=== PATIENT | female | born 1990 | race Caucasian/White ===

== ENCOUNTER → 2017-01-09 | Outpatient (CLI) | payer BC ==
[~2017-01-09] VITALS: Ht 157.5 cm; Wt 59.0 kg
[~2017-01-09] MED LIST: ANTIBIOTIC PO; BACTRIM,SEPT1 TABLET PO; MULTIVITAMIN1 EAC2 PO; SPRINTEC1 EACH PO; ZOFRAN ODT4 MG PO
[2017-01-09 16:59] VITALS: BP 123/66
== END | disposition home or self-care (01) ==
LOC: IVINF 16:48
DX: O36.0990 Maternal care for other rhesus isoimmunization, unspecified trimester, not applicable or unspecified (principal); Z3A.00 Weeks of gestation of pregnancy not specified
CPT/HCPCS: 96372; J2790

== ENCOUNTER 2017-01-12 02:54 | Emergency (ER) | payer BC ==
[~2017-01-12] VITALS: Ht 157.5 cm; Wt 55.7 kg
[~2017-01-12 02:54] MED LIST changes: -ZOFRAN ODT4 MG PO
[2017-01-12 03:40] LABS: HEMATOCRIT 42.4 % (36.0-46.0); MCH 33.5 PG (29.0-34.0); MCHC 34.7 G/DL (30.0-36.0); MCV 96.6 FL (83-99); MEAN PLAT.VOLUME 9.7 uM^3 (9.5-12.4); PLATELET COUNT 232 K/uL (156-360); RBC DIS.WIDTH-CV 11.2 % (11.8-14.6); RED BLOOD COUNT 4.39 M/uL (3.80-5.20); WHITE BLOOD COUNT 5.3 K/uL (4.1-10.2)
[2017-01-12 03:49] LABS: CHLORIDE 102 mEq/L (99-109); SODIUM 135 mEq/L (136-147)
[2017-01-12 03:51] LABS: GLUCOSE 96 mg/dL (70-99)
[2017-01-12 03:52] LABS: ANION GAP 12 MEQ/L (2-14)
[2017-01-12 03:53] LABS: TOTAL BILIRUBIN 0.5 mg/dL (0.0-1.0)
[2017-01-12 03:54] LABS: ALKALINE PHOSPHATASE 49 IU/L (3-129)
[2017-01-12 03:55] LABS: GFR ESTIMATE (CALCULATED) > 59 mL/min/
[2017-01-12 03:56] LABS: UREA NITROGEN (BUN) 14 mg/dL (9-23)
[2017-01-12 03:58] LABS: LIPASE 30 U/L (1.0-51.0)
[2017-01-12 04:13] LABS: INFLUENZA A VIRAL ANTIGEN NEGATIVE; INFLUENZA B VIRAL ANTIGEN NEGATIVE
[2017-01-12 04:30] LABS: QUANTITATIVE HCG 24801.2 MIU/ML
[2017-01-12 04:35] LABS: ADD MIUA? YES; BILIRUBIN NEGATIVE; BLOOD NEGATIVE; GLUCOSE (STRIP) NEGATIVE; KETONES 5; LEUKOCYTES TRACE; NITRITE NEGATIVE; PROTEIN (STRIP) NEGATIVE; SPECIFIC GRAVITY 1.023 (1.000-1.030); UROBILINOGEN 0.2 MG/DL (0.2-1.0)
[2017-01-12 04:50] LABS: COLOR YELLOW ((YELLOW))
[2017-01-12 05:02] LABS: BACTERIA NONE SEEN /HPF; EPITHELIAL CELLS 2+ /HPF; HYALINE CASTS 0-5 /LPF; MUCUS 2+ /LPF; RED BLOOD CELLS 0-5 /HPF (0-5); UCUL ADDED? NO; WHITE BLOOD CELLS 0-5 /HPF (0-5)
[2017-01-12] MEDS ORDERED: ZOFRAN ODT4 MG PO (05:12)
[2017-01-12 06:18] VITALS: BP 116/73
== END 2017-01-12 06:20 | disposition home or self-care (01) ==
LOC: EME 02:54
PROVIDERS: Emergency Medicine
DX: O21.9 Vomiting of pregnancy, unspecified (principal); O99.89 Other specified diseases and conditions complicating pregnancy, childbirth and the puerperium; R55 Syncope and collapse; R10.9 Unspecified abdominal pain; R19.7 Diarrhea, unspecified; O99.281 Endocrine, nutritional and metabolic diseases complicating pregnancy, first trimester; E86.0 Dehydration; O23.41 Unspecified infection of urinary tract in pregnancy, first trimester; Z3A.01 Less than 8 weeks gestation of pregnancy
CPT/HCPCS: 80053; 81003; 83690; 84702; 85027; 87502; 99281; 99285; J2405; J7030

== ENCOUNTER → 2017-06-16 | Outpatient (CLI) | payer OTHER ==
[~2017-06-16] VITALS: Ht 154.9 cm; Wt 59.0 kg
[~2017-06-16] MED LIST changes: +ZOFRAN ODT4 MG PO
[2017-06-16 11:05] VITALS: BP 124/60
== END | disposition home or self-care (01) ==
LOC: IVINF 10:51
DX: Z31.82 Encounter for Rh incompatibility status (principal); Z3A.28 28 weeks gestation of pregnancy
CPT/HCPCS: 96372; J2790

== ENCOUNTER 2017-09-11 08:10 | Inpatient (IN) | payer OTHER ==
[~2017-09-11] VITALS: Ht 157.5 cm; Wt 73.0 kg
[2017-09-11] VITALS (28 sets, daily range): BP systolic 93–136; BP diastolic 52–81
[2017-09-11 09:23] LABS: EOSINOPHIL (%) 1.9 % (0-5); EOSINOPHIL COUNT 0.2 K/uL (0-0.3); HEMATOCRIT 39.3 % (36.0-46.0); IMMATURE GRANULOCYTE (%) 0.7 % (0.0-0.7); IMMATURE GRANULOCYTE COUNT 0.1 K/uL; INSTRUMENT ABS NEUTROPHIL CT 6.2 K/uL; LYMPHOCYTE COUNT 1.5 K/uL (1.0-2.8); MCH 35.4 PG (29.0-34.0); MCHC 35.1 G/DL (30.0-36.0); MCV 100.8 FL (83-99); MEAN PLAT.VOLUME 10.4 uM^3 (9.5-12.4); MONOCYTE (%) 8.9 % (3-12); MONOCYTE COUNT 0.8 K/uL (0-0.8); NEUTROPHIL (%) 71.3 % (45-76); NEUTROPHIL COUNT 6.2 K/uL (1.8-6.4); PLATELET COUNT 162 K/uL (156-360); RBC DIS.WIDTH-CV 12.3 % (11.8-14.6); RBC DIS.WIDTH-SD 45.5 % (39-53); WHITE BLOOD COUNT 8.8 K/uL (4.1-10.2)
[2017-09-12] VITALS (13 sets, daily range): BP systolic 97–142; BP diastolic 53–73
[2017-09-13 05:46] LABS: EOSINOPHIL (%) 2.3 % (0-5); EOSINOPHIL COUNT 0.3 K/uL (0-0.3); HEMATOCRIT 33.4 % (36.0-46.0); IMMATURE GRANULOCYTE (%) 0.8 % (0.0-0.7); IMMATURE GRANULOCYTE COUNT 0.1 K/uL; INSTRUMENT ABS NEUTROPHIL CT 7.8 K/uL; LYMPHOCYTE COUNT 1.7 K/uL (1.0-2.8); MCH 35.2 PG (29.0-34.0); MCHC 34.1 G/DL (30.0-36.0); MCV 103.1 FL (83-99); MEAN PLAT.VOLUME 10.5 uM^3 (9.5-12.4); MONOCYTE (%) 8.3 % (3-12); MONOCYTE COUNT 0.9 K/uL (0-0.8); NEUTROPHIL (%) 72.6 % (45-76); NEUTROPHIL COUNT 7.8 K/uL (1.8-6.4); PLATELET COUNT 136 K/uL (156-360); RBC DIS.WIDTH-CV 12.3 % (11.8-14.6); RBC DIS.WIDTH-SD 46.4 % (39-53); RED BLOOD COUNT 3.24 M/uL (3.80-5.20); WHITE BLOOD COUNT 10.8 K/uL (4.1-10.2)
[2017-09-13 07:10] VITALS: BP 97/56
[2017-09-13 15:05] VITALS: BP 108/53
[2017-09-13 17:50] VITALS: BP 122/72
[2017-09-13 22:31] VITALS: BP 117/66
[2017-09-14 07:35] VITALS: BP 137/68
[2017-09-14] MEDS ORDERED: IBUPROFEN800 MG PO (10:49)
== END 2017-09-14 14:20 | disposition home or self-care (01) | DRG 775 ==
LOC: LDRP-OP 08:10 → 2WEST 08:12 → LDRP-OP 10-04 13:04
PROVIDERS: Advanced Practice Midwife
DX: O70.0 First degree perineal laceration during delivery (principal); O48.0 Post-term pregnancy; O69.81X0 Labor and delivery complicated by cord around neck, without compression, not applicable or unspecified; Z3A.41 41 weeks gestation of pregnancy; Z37.0 Single live birth
CPT/HCPCS: 85025; C1755; G0378; J2405; J3010; J7120